=== PATIENT | female | born 1935 | race Caucasian/White ===

== ENCOUNTER 2018-04-30 15:02 | Observation (INO) ==
[2018-04-30 17:50] LABS: BASOPHILS # (AUTO) 0.1 X10^3/uL (0.0-0.1); BASOPHILS % (AUTO) 0.7 % (0.2-1.0); EOSINOPHILS % (AUTO) 0.2 % (0.9-2.9); HEMATOCRIT 32.2 % (36.0-47.0); HEMOGLOBIN 10.9 g/dL (12.0-16.0); LYMPHOCYTES # (AUTO) 1.5 X10^3/uL (1.3-2.9); LYMPHOCYTES % (AUTO) 16.3 % (21.0-51.0); MEAN CORPUSCULAR HEMOGLOBIN 27.8 pg (27.0-34.0); MEAN CORPUSCULAR HGB CONC 33.8 g/dL (33.0-35.0); MEAN CORPUSCULAR VOLUME 82.2 fL (80.0-100.0); MONOCYTES % (AUTO) 10.8 % (0.0-13.0); NEUTROPHILS # (AUTO) 6.5 x10^3/uL (2.2-4.8); PLATELET COUNT 347 X10^3/uL (150.0-450.0); RED BLOOD COUNT 3.92 X10^6/uL (3.5-5.4); RED CELL DISTRIBUTION WIDTH 14.9 % (11.6-16.5); WHITE BLOOD COUNT 9.1 X10^3/uL (3.6-10.0)
[2018-04-30 18:00] LABS: ALANINE AMINOTRANSFERASE 13 Units/L (12-78); ALKALINE PHOSPHATASE 69 Units/L (46-116); ASPARTATE AMINO TRANSFERASE 18 Units/L (15-37); BLOOD UREA NITROGEN 16 mg/dL (7-18); CALCIUM 8.7 mg/dL (8.5-10.1); CARBON DIOXIDE 29.1 mmol/L (21-32); CHLORIDE 102 mmol/L (98-107); COR CA(FOR HYPOALB) 9.5 mg/dL (8.5-10.1); CREATININE 1.27 mg/dL (0.55-1.02); SODIUM 140 mmol/L (136-145); TOTAL PROTEIN 6.8 g/dL (6.4-8.2); eGFR NON BLACK RACES 43 (>60)
[2018-04-30 18:03] VITALS: BMI 26.9
[2018-04-30] MEDS: NS 1000 ML 1,000 ML IV SCH (18:16)
--- NOTE | 2018-04-30 20:11 | RAD ---
HISTORY: Abdominal Pain Study: Single view of the abdomen. Comparison: None Findings: Evaluation of the abdomen demonstrates a normal bowel gas pattern. No free air. No pathological soft tissue mass or calcification can be observed. The bony structures are grossly intact. IMPRESSION: 1. No evidence for acute abdominal pathology identified. Reported By:
[2018-04-30 20:42] LABS: BILIRUBIN,URINE NEGATIVE (NEGATIVE); BLOOD/HEMOGLOBIN,URINE 2+ (NEGATIVE); GLUCOSE, URINE NEGATIVE (NEGATIVE); KETONES,URINE NEGATIVE (NEGATIVE); LEUKOCYTE ESTERASE ,URINE 2+ (NEGATIVE); NITRITES,URINE NEGATIVE (NEGATIVE); PROTEIN,URINE 2+ (NEGATIVE); UROBILINOGEN,URINE NORMAL (NORMAL)
[2018-04-30 20:51] LABS: APPEARANCE,URINE HAZY (CLEAR); BACTERIA,URINE TRACE /HPF (NEGATIVE); COLOR,URINE YELLOW (YELLOW); SQUAMOUS EPITHELIAL CELL,UR RARE /HPF (NEGATIVE)
[2018-04-30] MEDS: COLACE CAP 100 MG PO SCH ×2 (20:58→21:01)
[2018-04-30] MEDS: MILK OF MAGNESIA PO SCH ×2 (20:59→21:01)
[2018-04-30] MEDS: MIRALAX POWDER (1 DOSE 17 G) PO SCH (21:03)
[2018-04-30] MEDS: ROCEPHIN VIAL 1 GRAM IVP SCH (22:10)
[2018-05-01 05:20] LABS: BASOPHILS # (AUTO) 0.1 X10^3/uL (0.0-0.1); BASOPHILS % (AUTO) 0.7 % (0.2-1.0); EOSINOPHILS % (AUTO) 0.3 % (0.9-2.9); HEMATOCRIT 33.9 % (36.0-47.0); HEMOGLOBIN 11.2 g/dL (12.0-16.0); LYMPHOCYTES # (AUTO) 1.4 X10^3/uL (1.3-2.9); LYMPHOCYTES % (AUTO) 13.1 % (21.0-51.0); MEAN CORPUSCULAR HEMOGLOBIN 27.6 pg (27.0-34.0); MEAN CORPUSCULAR HGB CONC 33.1 g/dL (33.0-35.0); MEAN CORPUSCULAR VOLUME 83.5 fL (80.0-100.0); MEAN PLATELET VOLUME 7.6 fL (7.4-11.0); MONOCYTES # (AUTO) 1.1 x10^3/uL (0.3-0.8); MONOCYTES % (AUTO) 10.6 % (0.0-13.0); NEUTROPHILS # (AUTO) 7.8 x10^3/uL (2.2-4.8); NEUTROPHILS % (AUTO) 75.3 % (42.0-75.0); PLATELET COUNT 373 X10^3/uL (150.0-450.0); RED BLOOD COUNT 4.06 X10^6/uL (3.5-5.4); RED CELL DISTRIBUTION WIDTH 14.9 % (11.6-16.5); WHITE BLOOD COUNT 10.4 X10^3/uL (3.6-10.0)
[2018-05-01] MEDS ORDERED: POTASSIUM CHL 60 MEQ/NS 0.45% 500 ML IV PRN (05:26)
[2018-05-01] MEDS ORDERED: K-RIDER 10 MEQ/NS 100 ML 10 MEQ/100 ML BAG IV PRN (05:26)
[2018-05-01] MEDS ORDERED: POTASSIUM CHL 40 MEQ/NS 0.45% 500 ML IV PRN (05:26)
[2018-05-01] MEDS ORDERED: POTASSIUM CHLORIDE LIQ 20 MEQ UDC PO PRN (05:26)
[2018-05-01] MEDS ORDERED: MICRO K EXTEN CAP 10 MEQ PO PRN (05:26)
[2018-05-01] MEDS ORDERED: KLOR-CON PO PRN (05:26)
[2018-05-01] MEDS: NS 1000 ML 1,000 ML IV SCH ×2 (05:29→19:17)
[2018-05-01 05:45] LABS: ALANINE AMINOTRANSFERASE 14 Units/L (12-78); ALBUMIN 2.9 g/dL (3.4-5.0); ALKALINE PHOSPHATASE 71 Units/L (46-116); ASPARTATE AMINO TRANSFERASE 20 Units/L (15-37); BLOOD UREA NITROGEN 16 mg/dL (7-18); CALCIUM 8.7 mg/dL (8.5-10.1); CARBON DIOXIDE 30.4 mmol/L (21-32); CHLORIDE 102 mmol/L (98-107); COR CA(FOR HYPOALB) 9.6 mg/dL (8.5-10.1); CREATININE 1.04 mg/dL (0.55-1.02); SODIUM 141 mmol/L (136-145); TOTAL PROTEIN 6.8 g/dL (6.4-8.2); eGFR NON BLACK RACES 54 (>60)
[2018-05-01] MEDS: MAGNESIUM SULFATE 1 GRAM/100 mL PREMIX 1 GM/100 ML BAG IV PRN ×2 (06:13→09:02)
[2018-05-01] MEDS: K-DUR TAB 20 MEQ PO PRN (06:14)
[2018-05-01] MEDS: ROCEPHIN VIAL 1 GRAM IVP SCH (09:01)
[2018-05-01] MEDS: MILK OF MAGNESIA PO SCH (09:04)
[2018-05-01] MEDS: COLACE CAP 100 MG PO SCH (09:04)
[2018-05-01] MEDS: MIRALAX POWDER (1 DOSE 17 G) PO SCH (09:05)
--- NOTE | 2018-05-01 09:57 | DR.UPDATE ---
H&P Update History and Physical Update: WAS SEEN IN THE OFFICE YESTERDAY. SHE COMPLAINTSED OF ABDOMINAL PAIN, LACK OF BLADDER CONTROL, URGENCY, INTERMITTENT, WATERY DIARRHEA. SHE DENIES A NORMAL BOWEL MOVMENENT IN THE PAST 3 WEEKS. SHE REPORTS FEELING LIKE SHE NEEDS TO HAVE A BOWEL MOVMENT, BUT ONLY HAS DIARRHEA. SHE WAS ADMITTED FOR FURTHER EVALUATION AND TREATMENTS. ON ADMISSION, WE PLANNED TO OBTAIN LABS, KUB, AND ADMINISTER SOAP SUDS ENEMAS UNTIL CLEAR. NO OTHER CHANGES NOTED TO H&P. Changes noted: NO
[2018-05-01] MEDS ORDERED: NEURONTIN CAP 100 MG PO PRN (11:26)
[2018-05-01] MEDS ORDERED: ULTRAM PO PRN (11:26)
[2018-05-01] MEDS: NORVASC TAB 5 MG PO SCH (12:00)
[2018-05-01] MEDS: CELEBREX PO SCH (12:00)
[2018-05-01] MEDS: PAXIL PO SCH (12:00)
[2018-05-01] MEDS: PROTONIX TAB 40 MG PO SCH (12:00)
[2018-05-01] MEDS: ARICEPT TAB 10 MG PO SCH ×2 (12:00→20:21)
--- NOTE | 2018-05-01 13:10 | CT ---
CT OF THE ABDOMEN AND PELVIS WITH CONTRAST HISTORY: Abdominal pain and diarrhea Comparison: None Technique: Multiple axial images of the abdomen and pelvis were obtained from the lung bases to the pubic symphysis follow the administration of IV contrast as well as oral contrast. Dose reduction techniques including Automated Exposure Control (AEC) and adjustment of mA and kV were utlized. Findings: The heart is normal in size. There is no pericardial effusion. Lung bases are clear without focal consolidation, pleural effusion or pneumothorax. There is a large hiatal hernia with some surrounding fluid in the hernia sac Liver and spleen are normal in size, enhancement characteristics and contour. No focal lesions. The portal vein is patent. No ductal dilitation. Gallbladder absent. The pancreas is unremarkable. Adrenal glands are normal. Kidneys enhance symmetrically without hydronephrosis or nephrolithiasis. No bowel obstruction or inflammation. There is omental caking, ascites and peritoneal thickening/nodularity. Severe diverticulosis. No free fluid or fluid collections. Although pelvic structures are not well evaluated secondary to streak artifact from patient's right hip prosthesis, there is extensive abnormal soft tissue within the pelvis. The uterus is not well seen however this soft tissues in the region of the utero be expected to be located. Additionally it is confluent with the sigmoid colon at multiple regions. No aggressive osseous lesions. Multiple compression fractures most notably L1, L2. IMPRESSION: 1. Abnormal soft tissue in the pelvis without clear identification of normal uterus or ovaries. This soft tissue is confluent with the sigmoid colon. Differential considerations include colonic or TOWER HELPER malignancy. There is extensive omental thickening and peritoneal nodularity as well as ascites consisting with metastatic peritoneal carcinomatosis. Reported By:
[2018-05-01] MEDS: SYNTHROID 75 mcg TAB PO SCH (13:44)
[2018-05-01] MEDS: XANAX PO SCH ×2 (13:44→20:21)
[2018-05-01 14:07] LABS: STOOL FOR WBC NEGATIVE (NEGATIVE)
[2018-05-01 14:29] LABS: CRYPTOSPORIDIUM PARVUM ANTIGEN NEGATIVE (NEGATIVE); GIARDIA LAMBLIA ANTIGEN NEGATIVE (NEGATIVE)
[2018-05-01] MEDS ORDERED: ZOCOR TAB 10 MG PO SCH (21:00)
[2018-05-02] MEDS: NS 1000 ML 1,000 ML IV SCH ×2 (03:31→07:37)
[2018-05-02 05:20] LABS: BASOPHILS # (AUTO) 0.1 X10^3/uL (0.0-0.1); BASOPHILS % (AUTO) 0.6 % (0.2-1.0); EOSINOPHILS # (AUTO) 0.1 x10^3/uL (0.0-0.2); EOSINOPHILS % (AUTO) 1.5 % (0.9-2.9); HEMATOCRIT 29.5 % (36.0-47.0); HEMOGLOBIN 9.7 g/dL (12.0-16.0); LYMPHOCYTES # (AUTO) 1.2 X10^3/uL (1.3-2.9); LYMPHOCYTES % (AUTO) 14.1 % (21.0-51.0); MEAN CORPUSCULAR HEMOGLOBIN 27.8 pg (27.0-34.0); MEAN PLATELET VOLUME 7.3 fL (7.4-11.0); MONOCYTES # (AUTO) 1.1 x10^3/uL (0.3-0.8); MONOCYTES % (AUTO) 12.8 % (0.0-13.0); NEUTROPHILS # (AUTO) 5.9 x10^3/uL (2.2-4.8); PLATELET COUNT 303 X10^3/uL (150.0-450.0); RED BLOOD COUNT 3.51 X10^6/uL (3.5-5.4); RED CELL DISTRIBUTION WIDTH 15.1 % (11.6-16.5); WHITE BLOOD COUNT 8.3 X10^3/uL (3.6-10.0)
[2018-05-02 05:27] LABS: ALANINE AMINOTRANSFERASE 11 Units/L (12-78); ALBUMIN 2.4 g/dL (3.4-5.0); ALKALINE PHOSPHATASE 61 Units/L (46-116); ASPARTATE AMINO TRANSFERASE 16 Units/L (15-37); BLOOD UREA NITROGEN 15 mg/dL (7-18); CALCIUM 8.1 mg/dL (8.5-10.1); CARBON DIOXIDE 27.7 mmol/L (21-32); CHLORIDE 106 mmol/L (98-107); COR CA(FOR HYPOALB) 9.4 mg/dL (8.5-10.1); MAGNESIUM 1.9 mg/dL (1.7-2.9); SODIUM 143 mmol/L (136-145); TOTAL PROTEIN 5.7 g/dL (6.4-8.2); eGFR NON BLACK RACES > 60 (>60)
[2018-05-02] MEDS: MAGNESIUM SULFATE 1 GRAM/100 mL PREMIX 1 GM/100 ML BAG IV PRN ×2 (05:56→09:12)
[2018-05-02] MEDS: K-DUR TAB 20 MEQ PO PRN (05:57)
[2018-05-02] MEDS: SYNTHROID 75 mcg TAB PO SCH (06:01)
[2018-05-02] MEDS: ARICEPT TAB 10 MG PO SCH (08:58)
[2018-05-02] MEDS: NORVASC TAB 5 MG PO SCH (08:59)
[2018-05-02] MEDS: CELEBREX PO SCH (08:59)
[2018-05-02] MEDS: PROTONIX TAB 40 MG PO SCH (09:00)
[2018-05-02] MEDS: PAXIL PO SCH (09:00)
[2018-05-02] MEDS ORDERED: ALTACE CAP 10 MG PO SCH (09:00)
[2018-05-02] MEDS ORDERED: TOPROL XL PO SCH (09:00)
[2018-05-02] MEDS: ROCEPHIN VIAL 1 GRAM IVP SCH (09:00)
[2018-05-02 12:09] VITALS: BP 135/68
--- NOTE | 2018-05-05 09:11 | PCM.PROG ---
Progress Note - Progress Note for Day of Date of Exam: 05/01/18 - Subjective Subjective: WAS ADMITTED FOR COMPLAINTS OF ABDOMINAL PAIN, PERIODS OF CONSTIPATION FOLLOWED BY DIARRHEA. TODAY, SHE IS ALERT AND ORIENTED, LYING IN BED ON MORNING ROUNDS. SHE CONTINUES WITH COMPLAINTS OF ABDOMINAL PAIN AND DIARRHEA. YESTERDAYS KUB ON ADMISSION DID NOT REVEAL CONSTIPATION. HER VITALS THIS MORNING ARE 98.3-60-18-96%-161/73. LABS WERE OBTAINED. ABNORMAL LAB VALUES INCLUDE THE FOLLOWING: WBC 10.4, HGB 11.2, HCT 33.9, POTASSIUM 3.4, CREATININE 1.04, GLUCOSE 104, ALBUMIN 2.9. URINALYSIS OBTAINED ON ADMISSION REVEALED: WBC 10-20, RBC 3-5, BACTERIA TRACE, LEUKOCYTES 2+. URINE CULTURE PENDING. SHE IS CURRENTLY RECEIVING IV ROCEPHIN AND IV HYDRATION. WE WILL REPLACE HER POTASSI UMWITH THE POTASSIUM PROTOCOL TODAY. WE WILL ALSO OBTAIN STOOL STUDIES AND A CT OF THE ABDOMEN AND PELVIS WITH CONTRAST. OTHERWISE, WE WILL FOLLOW UP WITH AM LABS AND CONTINUE TO MONITOR. - Past Medical Family Social History Past Med/Fam/Surg Hx: No changes since H&P Allergies: Allergies No Known Drug Allergies Allergy (Verified 03/18/18 11:41) - Review of Systems ROS: No change since H&P - Vital Signs and I&O's Vital Signs: Temperature 98.6 F Pulse Rate [Left Radial] 63 Respiratory Rate 18 Blood Pressure [Left Arm] 135/68 Blood Pressure 139/81 O2 Sat by Pulse Oximetry 93 Intake and Output: Intake & Output 05/02/18 05/03/18 05/04/18 05/05/18 11:59 11:59 11:59 11:59 Intake Total 1969 Balance 1969 - Physical Exam Oriented: Normal Eyes: Normal Ear: Normal Nose: Normal Throat: Normal Respiratory: Normal Cardiovascular: Normal : Normal Auscultation: Bowel Sounds: Normal Palpation: Normal Tenderness: Diffuse, Moderate. negative: Rebound, Guarding, Rigidity Skin: Normal Musculoskeletal: Normal Psychiatric: Normal Mood Description: Calm Affect: Normal Speech Pattern: Clear, Appropriate - Laboratory and Diagnostics Result Diagrams: 05/02/18 04:32 05/02/18 04:32 Labs: 05/01/18 13:00 Stool Stool Culture - Final 05/01/18 13:00 Stool - Final 04/30/18 20:25 Urine,Clean Catch Urine Culture - Final Staphylococcus Saprophyticus Laboratory WBC 8.3 X10^3/uL (3.6-10.0) 05/02/18 04:32 RBC 3.51 X10^6/uL (3.5-5.4) 05/02/18 04:32 Hgb 9.7 g/dL (12.0-16.0) L 05/02/18 04:32 Hct 29.5 % (36.0-47.0) L 05/02/18 04:32 MCV 84.0 fL (80.0-100.0) 05/02/18 04:32 MCH 27.8 pg (27.0-34.0) 05/02/18 04:32 MCHC 33.0 g/dL (33.0-35.0) 05/02/18 04:32 RDW 15.1 % (11.6-16.5) 05/02/18 04:32 Plt Count 303 X10^3/uL (150.0-450.0) 05/02/18 04:32 MPV 7.3 fL (7.4-11.0) L 05/02/18 04:32 Neut % (Auto) 71.0 % (42.0-75.0) 05/02/18 04:32 Lymph % (Auto) 14.1 % (21.0-51.0) L 05/02/18 04:32 [place] % (Auto) 12.8 % (0.0-13.0) 05/02/18 04:32 Eos % (Auto) 1.5 % (0.9-2.9) 05/02/18 04:32 Baso % (Auto) 0.6 % (0.2-1.0) 05/02/18 04:32 Neut # (Auto) 5.9 x10^3/uL (2.2-4.8) H 05/02/18 04:32 Lymph # (Auto) 1.2 X10^3/uL (1.3-2.9) L 05/02/18 04:32 [place] # (Auto) 1.1 x10^3/uL (0.3-0.8) H 05/02/18 04:32 Eos # (Auto) 0.1 x10^3/uL (0.0-0.2) 05/02/18 04:32 Baso # (Auto) 0.1 X10^3/uL (0.0-0.1) 05/02/18 04:32 Absolute Nucleated RBC 0.0 /100WBC 05/02/18 04:32 Sodium 143 mmol/L (136-145) 05/02/18 04:32 Corrected Sodium TNP 05/02/18 04:32 Potassium 3.6 mmol/L (3.5-5.1) 05/02/18 04:32 Chloride 106 mmol/L (98-107) 05/02/18 04:32 Carbon Dioxide 27.7 mmol/L (21-32) 05/02/18 04:32 BUN 15 mg/dL (7-18) 05/02/18 04:32 Creatinine 0.90 mg/dL (0.55-1.02) 05/02/18 04:32 Est GFR (MDRD) Af Amer > 60 (>60) 05/02/18 04:32 Est GFR (MDRD) Non-Af > 60 (>60) 05/02/18 04:32 Glucose 101 mg/dL (65-99) H 05/02/18 04:32 Calcium 8.1 mg/dL (8.5-10.1) L 05/02/18 04:32 Corrected Calcium 9.4 mg/dL (8.5-10.1) 05/02/18 04:32 Magnesium 1.9 mg/dL (1.7-2.9) 05/02/18 04:32 Total Bilirubin 0.20 mg/dL (0.2-1.0) 05/02/18 04:32 AST 16 Units/L (15-37) 05/02/18 04:32 ALT 11 Units/L (12-78) L 05/02/18 04:32 Alkaline Phosphatase 61 Units/L (46-116) 05/02/18 04:32 Total Protein 5.7 g/dL (6.4-8.2) L 05/02/18 04:32 Albumin 2.4 g/dL (3.4-5.0) L 05/02/18 04:32 Globulin 3.3 g/dL (2.5-4.5) 05/02/18 04:32 Albumin/Globulin Ratio 0.7 Ratio (1.1-2.1) L 05/02/18 04:32 Carcinoembryonic Ag 1.7 ng/mL (0.0-3.0) 05/02/18 04:32 CA 19-9 Antigen 10 U/mL (0-37) 05/02/18 04:32 CA 125 Antigen 704 U/mL (0-35) H 05/02/18 04:32 Specimen Type Clean catch urine 04/30/18 20:25 Urine Color Yellow (YELLOW) 04/30/18 20:25 Urine Appearance Hazy (CLEAR) 04/30/18 20:25 Urine pH 7.0 (5.0 - 8.0) 04/30/18 20:25 Ur Specific [place] 1.010 (1.000-1.030) 04/30/18 20:25 Urine Protein 2+ (NEGATIVE) 04/30/18 20:25 Urine Glucose (UA) Negative (NEGATIVE) 04/30/18 20:25 Urine Ketones Negative (NEGATIVE) 04/30/18 20:25 Urine Occult Blood 2+ (NEGATIVE) 04/30/18 20:25 Urine Nitrite Negative (NEGATIVE) 04/30/18 20:25 Urine Bilirubin Negative (NEGATIVE) 04/30/18 20:25 Urine Urobilinogen Normal (NORMAL) 04/30/18 20:25 Ur Leukocyte Esterase 2+ (NEGATIVE) 04/30/18 20:25 Urine RBC 3-5 /HPF (NONE SEEN) 04/30/18 20:25 Urine WBC 10-20 /HPF (NONE SEEN) 04/30/18 20:25 Ur Squamous Epith Cells Rare /HPF (NEGATIVE) 04/30/18 20:25 Urine Bacteria Trace /HPF (NEGATIVE) 04/30/18 20:25 Ur Culture Indicated? Yes/culture set up 04/30/18 20:25 Stool Description 2g loose brown 05/01/18 13:00 Stl Occult Blood (IFOB) Negative (NEGATIVE) 05/01/18 13:00 Stool for White Cells Negative (NEGATIVE) 05/01/18 13:00 Stl C. diff Tox B Gene Negative (NEGATIVE) 05/01/18 13:00 Stl C. diff [id number] Negative (NEGATIVE) 05/01/18 13:00 Cryptosporid parvum Ag Negative (NEGATIVE) 05/01/18 13:00 Giardia lamblia Ag Negative (NEGATIVE) 05/01/18 13:00 - Plan (1) Abdominal pain Status: Acute Qualifiers: Abdominal location: generalized Qualified Code(s): R10.84 - Generalized abdominal pain Plan: OBTAIN ABDOMEN/PELVIS CT WITH CONTRAST, CONTINUE TO MONITOR (2) Urinary tract infection Status: Acute Qualifiers: Urinary tract infection type: acute cystitis Hematuria presence: with hematuria Qualified Code(s): N30.01 - Acute cystitis with hematuria Plan: ROCEPHIN 1GM IV DAILY, IV HYDRATION, CONTINUE TO MONITOR (3) Diarrhea Status: Acute Qualifiers: Diarrhea type: unspecified type Qualified Code(s): R19.7 - Diarrhea, unspecified Plan: STOOL STUDIES, CONTINUE TO MONITOR
== END 2018-05-02 12:20 | disposition home or self-care (01) ==
LOC: MED/SURG
PROVIDERS: ADMIT Internal Medicine; ATTEND Internal Medicine
DX: R01.1 Cardiac murmur, unspecified; I10 Essential (primary) hypertension; R19.7 Diarrhea, unspecified; K56.41 Fecal impaction; R26.89 Other abnormalities of gait and mobility; R10.84 Generalized abdominal pain; R97.1 Elevated cancer antigen 125 [CA 125]; F41.1 Generalized anxiety disorder; B95.7 Other staphylococcus as the cause of diseases classified elsewhere; R94.4 Abnormal results of kidney function studies; E78.2 Mixed hyperlipidemia; N30.01 Acute cystitis with hematuria
CPT/HCPCS: 36415; 74000; 74018; 74177; 80053; 81001; 82270; 82378; 83630; 83735; 85025; 86301; 86304; 86316; 87045; 87086; 87186; 87328; 87329; 87427; 87449; 87493; 87899; 96367; 96374; 97110; 97116; 97162; 97166; 97535; A4216; A4222; G0378; J0696; J3475; J7030

== ENCOUNTER 2018-05-10 17:23 | Inpatient (IN) ==
[2018-05-10] MEDS ORDERED: ZITHROMAX INJ 500 MG VIAL 500 MG in NS 250 ML IV 250 ML IV SCH (20:26)
[2018-05-10 20:33] VITALS: BMI 26.9
[2018-05-10 20:59] LABS: BASOPHILS # (AUTO) 0.1 X10^3/uL (0.0-0.1); BASOPHILS % (AUTO) 0.4 % (0.2-1.0); EOSINOPHILS % (AUTO) 0.1 % (0.9-2.9); HEMATOCRIT 37.6 % (36.0-47.0); HEMOGLOBIN 12.4 g/dL (12.0-16.0); LYMPHOCYTES # (AUTO) 0.9 X10^3/uL (1.3-2.9); LYMPHOCYTES % (AUTO) 5.4 % (21.0-51.0); MEAN CORPUSCULAR HEMOGLOBIN 27.5 pg (27.0-34.0); MEAN CORPUSCULAR HGB CONC 32.9 g/dL (33.0-35.0); MEAN CORPUSCULAR VOLUME 83.7 fL (80.0-100.0); MONOCYTES # (AUTO) 1.1 x10^3/uL (0.3-0.8); MONOCYTES % (AUTO) 6.7 % (0.0-13.0); NEUTROPHILS # (AUTO) 13.8 x10^3/uL (2.2-4.8); NEUTROPHILS % (AUTO) 87.4 % (42.0-75.0); PLATELET COUNT 421 X10^3/uL (150.0-450.0); RED BLOOD COUNT 4.49 X10^6/uL (3.5-5.4); RED CELL DISTRIBUTION WIDTH 15.4 % (11.6-16.5); WHITE BLOOD COUNT 15.8 X10^3/uL (3.6-10.0)
[2018-05-10] MEDS: MAGNESIUM SULFATE 1 GRAM/100 mL PREMIX 1 GM/100 ML BAG IV PRN ×2 (21:00→22:00)
[2018-05-10] MEDS ORDERED: NS 1000 ML 1,000 ML IV ONE (21:00)
[2018-05-10 21:21] LABS: ALANINE AMINOTRANSFERASE 15 Units/L (12-78); ALBUMIN 2.7 g/dL (3.4-5.0); ALKALINE PHOSPHATASE 92 Units/L (46-116); ASPARTATE AMINO TRANSFERASE 25 Units/L (15-37); BLOOD UREA NITROGEN 14 mg/dL (7-18); CALCIUM 8.1 mg/dL (8.5-10.1); CARBON DIOXIDE 28.1 mmol/L (21-32); CHLORIDE 103 mmol/L (98-107); CKMB % 3.6 % (<4); COR CA(FOR HYPOALB) 9.1 mg/dL (8.5-10.1); COR NA(FOR HYPERGLY) 141 mmol/L (136-145); CREATINE KINASE 47 Units/L (26-192); CREATINE KINASE MB 1.7 ng/mL (0-4.0); CREATININE 1.12 mg/dL (0.55-1.02); SODIUM 140 mmol/L (136-145); TOTAL PROTEIN 6.5 g/dL (6.4-8.2); TROPONIN I < 0.02 ng/mL (0-1.5); eGFR NON BLACK RACES 49 (>60)
[2018-05-10] MEDS ORDERED: POTASSIUM CHL 60 MEQ/NS 0.45% 500 ML IV PRN (21:26)
[2018-05-10] MEDS ORDERED: KLOR-CON PO PRN (21:26)
[2018-05-10] MEDS ORDERED: K-RIDER 10 MEQ/NS 100 ML 10 MEQ/100 ML BAG IV PRN (21:26)
[2018-05-10] MEDS ORDERED: POTASSIUM CHLORIDE LIQ 20 MEQ UDC PO PRN (21:26)
[2018-05-10] MEDS ORDERED: MICRO K EXTEN CAP 10 MEQ PO PRN (21:26)
[2018-05-10] MEDS ORDERED: POTASSIUM CHL 40 MEQ/NS 0.45% 500 ML IV PRN (21:26)
[2018-05-10] MEDS ORDERED: SALINE 3% 15 ML NEB TX NEB ONE (21:33)
[2018-05-10] MEDS: DUONEB 0.5 MG/3 MG NEB SCH (21:37)
[2018-05-10] MEDS ORDERED: XANAX PO ONE (22:26)
[2018-05-10] MEDS: ROCEPHIN VIAL 1 GRAM IVP SCH (22:31)
[2018-05-10] MEDS: K-DUR TAB 20 MEQ PO PRN (22:32)
[2018-05-10] MEDS: NS 1000 ML 1,000 ML IV SCH (22:32)
[2018-05-11 00:39] LABS: BILIRUBIN,URINE NEGATIVE (NEGATIVE); BLOOD/HEMOGLOBIN,URINE 1+ (NEGATIVE); GLUCOSE, URINE NEGATIVE (NEGATIVE); KETONES,URINE NEGATIVE (NEGATIVE); LEUKOCYTE ESTERASE ,URINE NEGATIVE (NEGATIVE); NITRITES,URINE NEGATIVE (NEGATIVE); PROTEIN,URINE 2+ (NEGATIVE); UROBILINOGEN,URINE NORMAL (NORMAL)
[2018-05-11 00:50] LABS: APPEARANCE,URINE HAZY (CLEAR); BACTERIA,URINE TRACE /HPF (NEGATIVE); COLOR,URINE YELLOW (YELLOW); RBC,URINE 0-2 /HPF (NONE SEEN); SQUAMOUS EPITHELIAL CELL,UR NEGATIVE /HPF (NEGATIVE)
[2018-05-11 02:40] LABS: CKMB % 2.9 % (<4); TROPONIN I 0.02 ng/mL (0-1.5)
[2018-05-11] MEDS ORDERED: BUTT CREAM (COMPOUND) ONE (02:54)
[2018-05-11] MEDS ORDERED: BUTT CREAM (COMPOUND) TOP PRN (03:34)
--- NOTE | 2018-05-11 06:17 | RAD ---
Examination: Portable AP chest History: Pneumonia Comparison 03/18/2018 Findings: Stable cardiac enlargement. The peripheral lungs are clear although the left lower lobe is obscured by the heart and a large hiatal hernia. There is no evidence for pneumonia or pleural fluid. Impression: Cardiac enlargement. Large intrathoracic hiatal hernia. Reported By:
[2018-05-11 06:44] LABS: BASOPHILS # (AUTO) 0.1 X10^3/uL (0.0-0.1); BASOPHILS % (AUTO) 0.4 % (0.2-1.0); EOSINOPHILS % (AUTO) 0.1 % (0.9-2.9); HEMATOCRIT 30.9 % (36.0-47.0); HEMOGLOBIN 10.2 g/dL (12.0-16.0); LYMPHOCYTES % (AUTO) 7.5 % (21.0-51.0); MEAN CORPUSCULAR HEMOGLOBIN 27.3 pg (27.0-34.0); MEAN CORPUSCULAR HGB CONC 33.1 g/dL (33.0-35.0); MEAN CORPUSCULAR VOLUME 82.6 fL (80.0-100.0); MEAN PLATELET VOLUME 7.2 fL (7.4-11.0); MONOCYTES # (AUTO) 1.2 x10^3/uL (0.3-0.8); NEUTROPHILS # (AUTO) 10.9 x10^3/uL (2.2-4.8); PLATELET COUNT 371 X10^3/uL (150.0-450.0); RED BLOOD COUNT 3.74 X10^6/uL (3.5-5.4); RED CELL DISTRIBUTION WIDTH 15.2 % (11.6-16.5); WHITE BLOOD COUNT 13.1 X10^3/uL (3.6-10.0)
[2018-05-11 06:51] LABS: ALANINE AMINOTRANSFERASE 12 Units/L (12-78); ALBUMIN 2.2 g/dL (3.4-5.0); ALKALINE PHOSPHATASE 70 Units/L (46-116); ASPARTATE AMINO TRANSFERASE 22 Units/L (15-37); BLOOD UREA NITROGEN 15 mg/dL (7-18); CALCIUM 7.8 mg/dL (8.5-10.1); CARBON DIOXIDE 25.1 mmol/L (21-32); CHLORIDE 105 mmol/L (98-107); COR CA(FOR HYPOALB) 9.2 mg/dL (8.5-10.1); COR NA(FOR HYPERGLY) 142 mmol/L (136-145); CREATININE 1.09 mg/dL (0.55-1.02); SODIUM 141 mmol/L (136-145); TOTAL PROTEIN 5.4 g/dL (6.4-8.2); eGFR NON BLACK RACES 51 (>60)
[2018-05-11 09:07] LABS: CREATINE KINASE 35 Units/L (26-192); CREATINE KINASE MB < 1.0 ng/mL (0-4.0); TROPONIN I < 0.02 ng/mL (0-1.5)
[2018-05-11 09:16] LABS: CKMB % 2.9 % (<4)
[2018-05-11] MEDS: K-DUR TAB 20 MEQ PO PRN (09:28)
[2018-05-11] MEDS: ROCEPHIN VIAL 1 GRAM IVP SCH (09:31)
[2018-05-11] MEDS: DUONEB 0.5 MG/3 MG NEB SCH ×4 (09:37→20:18)
[2018-05-11] MEDS ORDERED: PROTONIX INJ 40 MG VIAL IVP ONE (09:40)
[2018-05-11] MEDS ORDERED: LOMOTIL PO PRN (09:44)
--- NOTE | 2018-05-11 09:49 | DR.H&P ---
H&P - History & Physical for Day of: H&P Date: 05/10/18 - Chief Complaint Chief Complaint: SYNCOPE - History of Present Illness History of Present Illness: PT IS 83 WF TRANSFER FROM [facility] AFTER PRESENTING WITH CO SYNCOPE. PT WAS SEEN IN ER [facility], DIAGNOSED WITH PNEUMONIA. PT HAD CT HEAD NECK AND ABD/PELVIS. PT HAS NEWLY DIAGNOSED WITH OVARIAN CANCER WITH METASTATIC DISEASE. FAMILY CONSULTED WITH DR CRABTREE AND DR SKELTON AND AGREED FOR CONSERVATIVE MEASURES. FAMILY REPORTS PT HAS HAS CONTINUOUS DIARRHEA. PT ADMITTED FOR TREATMENT AND EVALUATION OF SYNCOPE, PNEUMONIA. - Past Medical History Past Medical History: Anxiety, Hypertension, Hypothyroidism - Past Surgical History Surgical History: Joint Replacement, Ortho Surgery - Family History Family Medical History: Coronary Artery Disease, Hypertension - Social History Does patient currently use any type of tobacco product: No Have you used tobacco products in the last 12 months: No Type of Tobacco Use: None Does any household member use tobacco: No Alcohol Use: None Drug Use: Prescription Drugs - Medications Home Medications: No Known Drug Allergies Allergy (Verified 03/18/18 11:41) CONTINUE taking the following medications aspirin [Aspir-Low] 81 mg PO QDAY 05/10/18 [History] - Review of Systems Constitutional: Weakness Eyes: No Symptoms Reported ENT: No Symptoms Reported Respiratory: No Symptoms Reported Cardiovascular: No Symptoms Reported Gastrointestinal: Abdominal Pain, Diarrhea Genitourinary: No Symptoms Reported Musculoskeletal: No Symptoms Reported Skin: No Symptoms Reported Neurological: Weakness - Physical Exam Vital Signs: Temperature 99.7 F Pulse Rate [Radial] 83 Pulse Rate 87 Respiratory Rate 18 Blood Pressure [Right Arm] 122/62 Blood Pressure [Left Arm] 132/68 Blood Pressure 135/68 O2 Sat by Pulse Oximetry 96 Oriented: Person Eyes: Normal Ear: Normal Nose: Normal Throat: Normal Respiratory: RLL Diminished, LLL Diminished Cardiovascular: Normal : Normal Auscultation: Bowel Sounds: Normal Palpation: Normal Tenderness: RLQ, LLQ, Suprapubic, Mild Skin: Decreased Turgur Musculoskeletal: Normal Psychiatric: Anxiety Affect: Anxious Speech Pattern: Clear, Appropriate - Assessment/Plan (1) Syncope Status: Acute Plan: ADMIT, SERIAL CE AND EKG. IV ATBX, RESP THERAPY. SUPPLEMENTAL O2, IV HYDRATION. VERIFY HOME MEDICATION. BP MONITORING, STOOL SPECIMEN. REVIEWED CT HEAD FROM [facility] (2) Hypertension Status: Acute (3) Diarrhea Qualifiers: Diarrhea type: unspecified type Qualified Code(s): R19.7 - Diarrhea, unspecified Status: Acute - Allergies Allergies/Adverse Reactions: Allergies Allergy/AdvReac Type Severity Reaction Status Date / Time No Known Drug Allergies Allergy Verified 03/18/18 11:41
[2018-05-11 10:46] LABS: STOOL FOR WBC POSITIVE (NEGATIVE)
[2018-05-11] MEDS: NORVASC TAB 5 MG PO SCH (11:04)
[2018-05-11] MEDS: ASPIRIN EC 81 MG PO SCH (11:04)
[2018-05-11] MEDS: SYNTHROID 75 mcg TAB PO SCH (11:04)
[2018-05-11] MEDS: PAXIL PO SCH (11:04)
--- NOTE | 2018-05-11 12:31 | PCM.PROG ---
Progress Note - Progress Note for Day of Date of Exam: 05/11/18 - Subjective Subjective: 83 WF ADMITTED ON 05/10 WITH CO SYNCOPE WITH RIGHT SIDE HEAD INJURY. PTHAD CT HEAD IN [place] WITHOUT ACUTE FINDINGS. CO SEVERE DIARRHEA. PT WAS ON ROCEPHIN AND ZITHROM FOR PNEUMONIA, DIAGNOSED IN [place]. PT CHEST XRAY WITHOUT INFILTRATE. PT HAD UTI ON PREVIOUS VISIT WITH SESATIVITY TO CIPRO. DC ZITHROMAX AND ROCEPHIN AND STARTED ON CIPRO IV. CONTINUE GENTLE IV HYDRATION AND DISCUSSED KEEPING BP MONITOR, PT MAY NEED ADJUSTMENTS IN ANTIHYPERTENSIVE STRENGTH. PT WBC 15.8 ON ADMISSION, 13.1 THIS AM. PT DENIES ANY PAIN FOR SOB, CO "RAW" TO HER BUTTOCKS - Past Medical Family Social History Past Med/Fam/Surg Hx: No changes since H&P Allergies: Allergies No Known Drug Allergies Allergy (Verified 03/18/18 11:41) - Review of Systems ROS: No change since H&P - Vital Signs and I&O's Vital Signs: Temperature 99.7 F Pulse Rate [Radial] 83 Pulse Rate 88 Respiratory Rate 18 Blood Pressure [Right Arm] 122/62 Blood Pressure [Left Arm] 132/68 Blood Pressure 135/68 O2 Sat by Pulse Oximetry 95 Intake and Output: Intake & Output 05/09/18 05/10/18 05/11/18 05/12/18 11:59 11:59 11:59 11:59 Intake Total 1270 / 1270 Balance 1270 / 1270 - Physical Exam Oriented: Person Eyes: Normal Ear: Normal Nose: Normal Throat: Normal Respiratory: Diminished Cardiovascular: Normal : Normal Auscultation: Bowel Sounds: Increased Tenderness: RLQ, LLQ, Suprapubic, Mild Skin: Decreased Turgur Musculoskeletal: Normal Psychiatric: Anxiety Affect: Anxious Speech Pattern: Clear, Appropriate - Laboratory and Diagnostics Result Diagrams: 05/11/18 05:39 05/11/18 05:39 Labs: 05/11/18 08:54 Stool - Final 05/10/18 22:12 Sputum - Expectorated Sputum - Final Laboratory WBC 13.1 X10^3/uL (3.6-10.0) H 05/11/18 05:39 RBC 3.74 X10^6/uL (3.5-5.4) 05/11/18 05:39 Hgb 10.2 g/dL (12.0-16.0) L D 05/11/18 05:39 Hct 30.9 % (36.0-47.0) L 05/11/18 05:39 MCV 82.6 fL (80.0-100.0) 05/11/18 05:39 MCH 27.3 pg (27.0-34.0) 05/11/18 05:39 MCHC 33.1 g/dL (33.0-35.0) 05/11/18 05:39 RDW 15.2 % (11.6-16.5) 05/11/18 05:39 Plt Count 371 X10^3/uL (150.0-450.0) 05/11/18 05:39 MPV 7.2 fL (7.4-11.0) L 05/11/18 05:39 Neut % (Auto) 83.0 % (42.0-75.0) H 05/11/18 05:39 Lymph % (Auto) 7.5 % (21.0-51.0) L 05/11/18 05:39 [place] % (Auto) 9.0 % (0.0-13.0) 05/11/18 05:39 Eos % (Auto) 0.1 % (0.9-2.9) L 05/11/18 05:39 Baso % (Auto) 0.4 % (0.2-1.0) 05/11/18 05:39 Neut # (Auto) 10.9 x10^3/uL (2.2-4.8) H 05/11/18 05:39 Lymph # (Auto) 1.0 X10^3/uL (1.3-2.9) L 05/11/18 05:39 [place] # (Auto) 1.2 x10^3/uL (0.3-0.8) H 05/11/18 05:39 Eos # (Auto) 0.0 x10^3/uL (0.0-0.2) 05/11/18 05:39 Baso # (Auto) 0.1 X10^3/uL (0.0-0.1) 05/11/18 05:39 Absolute Nucleated RBC 0.1 /100WBC 05/11/18 05:39 Sodium 141 mmol/L (136-145) 05/11/18 05:39 Corrected Sodium 142 mmol/L (136-145) 05/11/18 05:39 Potassium 3.7 mmol/L (3.5-5.1) 05/11/18 05:39 Chloride 105 mmol/L (98-107) 05/11/18 05:39 Carbon Dioxide 25.1 mmol/L (21-32) 05/11/18 05:39 BUN 15 mg/dL (7-18) 05/11/18 05:39 Creatinine 1.09 mg/dL (0.55-1.02) H 05/11/18 05:39 Est GFR (MDRD) Af Amer > 60 (>60) 05/11/18 05:39 Est GFR (MDRD) Non-Af 51 (>60) L 05/11/18 05:39 Glucose 121 mg/dL (65-99) H 05/11/18 05:39 Calcium 7.8 mg/dL (8.5-10.1) L 05/11/18 05:39 Corrected Calcium 9.2 mg/dL (8.5-10.1) 05/11/18 05:39 Magnesium 2.0 mg/dL (1.7-2.9) 05/11/18 05:39 Total Bilirubin 0.10 mg/dL (0.2-1.0) L 05/11/18 05:39 AST 22 Units/L (15-37) 05/11/18 05:39 ALT 12 Units/L (12-78) 05/11/18 05:39 Alkaline Phosphatase 70 Units/L (46-116) 05/11/18 05:39 Creatine Kinase 35 Units/L (26-192) 05/11/18 08:30 CK-MB (CK-2) < 1.0 ng/mL (0-4.0) 05/11/18 08:30 CK/CKMB % Calc 2.9 % (<4) 05/11/18 08:30 Troponin I < 0.02 ng/mL (0-1.5) 05/11/18 08:30 Total Protein 5.4 g/dL (6.4-8.2) L 05/11/18 05:39 Albumin 2.2 g/dL (3.4-5.0) L 05/11/18 05:39 Globulin 3.2 g/dL (2.5-4.5) 05/11/18 05:39 Albumin/Globulin Ratio 0.7 Ratio (1.1-2.1) L 05/11/18 05:39 Specimen Type Catherized urine 05/11/18 00:14 Urine Color Yellow (YELLOW) 05/11/18 00:14 Urine Appearance Hazy (CLEAR) 05/11/18 00:14 Urine pH 5.0 (5.0 - 8.0) 05/11/18 00:14 Ur Specific [place] 1.020 (1.000-1.030) 05/11/18 00:14 Urine Protein 2+ (NEGATIVE) 05/11/18 00:14 Urine Glucose (UA) Negative (NEGATIVE) 05/11/18 00:14 Urine Ketones Negative (NEGATIVE) 05/11/18 00:14 Urine Occult Blood 1+ (NEGATIVE) 05/11/18 00:14 Urine Nitrite Negative (NEGATIVE) 05/11/18 00:14 Urine Bilirubin Negative (NEGATIVE) 05/11/18 00:14 Urine Urobilinogen Normal (NORMAL) 05/11/18 00:14 Ur Leukocyte Esterase Negative (NEGATIVE) 05/11/18 00:14 Urine RBC 0-2 /HPF (NONE SEEN) 05/11/18 00:14 Urine WBC 3-5 /HPF (NONE SEEN) 05/11/18 00:14 Ur Squamous Epith Cells Negative /HPF (NEGATIVE) 05/11/18 00:14 Urine Bacteria Trace /HPF (NEGATIVE) 05/11/18 00:14 Ur Culture Indicated? No/not indicated 05/11/18 00:14 Stool Description 5cc drk brn, mucoid 05/11/18 08:54 Stl Occult Blood (IFOB) Positive (NEGATIVE) A 05/11/18 08:54 Stool for White Cells Positive (NEGATIVE) A 05/11/18 08:54 Stl C. diff Tox B Gene Negative (NEGATIVE) 05/11/18 08:54 Stl C. diff [id number] Negative (NEGATIVE) 05/11/18 08:54 - Plan (1) Syncope Status: Acute Plan: SERIAL CE AND EKG. IV ATBX, RESP THERAPY. SUPPLEMENTAL O2, IV HYDRATION. VERIFY HOME MEDICATION. BP MONITORING, STOOL SPECIMEN. REVIEWED CT HEAD FROM [place] (2) Hypertension Status: Acute (3) Diarrhea Status: Acute Qualifiers: Diarrhea type: unspecified type Qualified Code(s): R19.7 - Diarrhea, unsp ecified Plan: DUE TO METASTATIC DISEASE, COLITIS (4) UTI (urinary tract infection) Status: Acute Plan: CIPRO
[2018-05-11] MEDS: CIPRO IV 400 MG PREMIX* 400 MG/200 ML IV.SOLN. IV SCH ×2 (13:28→21:00)
[2018-05-11 14:56] LABS: CREATINE KINASE 37 Units/L (26-192); CREATINE KINASE MB < 1.0 ng/mL (0-4.0); TROPONIN I 0.02 ng/mL (0-1.5)
[2018-05-11 15:10] LABS: CKMB % 2.7 % (<4)
[2018-05-11] MEDS: ARICEPT TAB 10 MG PO SCH (21:00)
[2018-05-11 21:06] LABS: CKMB % 2.6 % (<4); CREATINE KINASE 38 Units/L (26-192); CREATINE KINASE MB < 1.0 ng/mL (0-4.0); TROPONIN I 0.02 ng/mL (0-1.5)
[2018-05-11] MEDS: ZOCOR TAB 10 MG PO SCH (21:34)
[2018-05-11] MEDS: XANAX PO SCH (21:34)
[2018-05-11] MEDS: ULTRAM PO PRN (22:35)
[2018-05-11] MEDS: NS 1000 ML 1,000 ML IV SCH (22:35)
[2018-05-12 03:02] LABS: CKMB % 3.1 % (<4); CREATINE KINASE 32 Units/L (26-192); CREATINE KINASE MB < 1.0 ng/mL (0-4.0); TROPONIN I 0.03 ng/mL (0-1.5)
[2018-05-12 06:30] LABS: BASOPHILS # (AUTO) 0.1 X10^3/uL (0.0-0.1); BASOPHILS % (AUTO) 0.5 % (0.2-1.0); EOSINOPHILS % (AUTO) 0.2 % (0.9-2.9); HEMATOCRIT 27.2 % (36.0-47.0); HEMOGLOBIN 9.1 g/dL (12.0-16.0); LYMPHOCYTES # (AUTO) 1.3 X10^3/uL (1.3-2.9); LYMPHOCYTES % (AUTO) 9.1 % (21.0-51.0); MEAN CORPUSCULAR HEMOGLOBIN 27.4 pg (27.0-34.0); MEAN CORPUSCULAR HGB CONC 33.4 g/dL (33.0-35.0); MEAN PLATELET VOLUME 7.3 fL (7.4-11.0); MONOCYTES # (AUTO) 1.3 x10^3/uL (0.3-0.8); MONOCYTES % (AUTO) 8.7 % (0.0-13.0); NEUTROPHILS % (AUTO) 81.5 % (42.0-75.0); PLATELET COUNT 347 X10^3/uL (150.0-450.0); RED BLOOD COUNT 3.32 X10^6/uL (3.5-5.4); RED CELL DISTRIBUTION WIDTH 15.4 % (11.6-16.5); WHITE BLOOD COUNT 14.7 X10^3/uL (3.6-10.0)
[2018-05-12 06:38] LABS: ALANINE AMINOTRANSFERASE 10 Units/L (12-78); ALBUMIN 1.9 g/dL (3.4-5.0); ALKALINE PHOSPHATASE 63 Units/L (46-116); ASPARTATE AMINO TRANSFERASE 25 Units/L (15-37); BLOOD UREA NITROGEN 13 mg/dL (7-18); CALCIUM 7.9 mg/dL (8.5-10.1); CARBON DIOXIDE 26.2 mmol/L (21-32); CHLORIDE 106 mmol/L (98-107); COR CA(FOR HYPOALB) 9.6 mg/dL (8.5-10.1); CREATININE 0.94 mg/dL (0.55-1.02); SODIUM 139 mmol/L (136-145); TOTAL PROTEIN 5.1 g/dL (6.4-8.2); eGFR NON BLACK RACES > 60 (>60)
--- NOTE | 2018-05-12 07:16 | RAD ---
AP Chest Indication: Pneumonia Comparison: 05/11/2018 Findings: The trachea is shifted to the right, not significant changed from prior examination. Heart size is normal. Large intrathoracic hernia is again noted. There is no new airspace opacity or pleural effusion. No pneumothorax. No acute osseous abnormality. Impression: Stable examination again demonstrating a large intrathoracic hiatal hernia. Reported By:
[2018-05-12] MEDS: DUONEB 0.5 MG/3 MG NEB SCH ×4 (09:39→21:08)
[2018-05-12] MEDS: CIPRO IV 400 MG PREMIX* 400 MG/200 ML IV.SOLN. IV SCH ×2 (09:56→21:42)
[2018-05-12] MEDS: ASPIRIN EC 81 MG PO SCH (09:58)
[2018-05-12] MEDS: ARICEPT TAB 10 MG PO SCH ×2 (09:58→21:41)
[2018-05-12] MEDS: PAXIL PO SCH (09:58)
[2018-05-12] MEDS: ALTACE CAP 10 MG PO SCH (09:58)
[2018-05-12] MEDS: SYNTHROID 75 mcg TAB PO SCH (09:58)
[2018-05-12] MEDS: NORVASC TAB 5 MG PO SCH (09:58)
[2018-05-12] MEDS: ULTRAM PO PRN (21:00)
[2018-05-12] MEDS: ZOCOR TAB 10 MG PO SCH (21:00)
[2018-05-12] MEDS: XANAX PO SCH (21:43)
[2018-05-13] MEDS: NS 1000 ML 1,000 ML IV SCH (00:42)
[2018-05-13 06:49] LABS: ALANINE AMINOTRANSFERASE 10 Units/L (12-78); ALBUMIN 1.9 g/dL (3.4-5.0); ALKALINE PHOSPHATASE 62 Units/L (46-116); ASPARTATE AMINO TRANSFERASE 24 Units/L (15-37); BLOOD UREA NITROGEN 20 mg/dL (7-18); CHLORIDE 104 mmol/L (98-107); COR CA(FOR HYPOALB) 9.7 mg/dL (8.5-10.1); CREATININE 0.86 mg/dL (0.55-1.02); SODIUM 138 mmol/L (136-145); TOTAL PROTEIN 5.3 g/dL (6.4-8.2); eGFR NON BLACK RACES > 60 (>60)
[2018-05-13 06:57] LABS: BASOPHILS # (AUTO) 0.1 X10^3/uL (0.0-0.1); BASOPHILS % (AUTO) 0.5 % (0.2-1.0); EOSINOPHILS # (AUTO) 0.1 x10^3/uL (0.0-0.2); EOSINOPHILS % (AUTO) 0.9 % (0.9-2.9); HEMATOCRIT 27.1 % (36.0-47.0); LYMPHOCYTES # (AUTO) 1.7 X10^3/uL (1.3-2.9); LYMPHOCYTES % (AUTO) 11.7 % (21.0-51.0); MEAN CORPUSCULAR HEMOGLOBIN 27.5 pg (27.0-34.0); MEAN CORPUSCULAR HGB CONC 33.3 g/dL (33.0-35.0); MEAN CORPUSCULAR VOLUME 82.6 fL (80.0-100.0); MEAN PLATELET VOLUME 7.6 fL (7.4-11.0); MONOCYTES # (AUTO) 1.1 x10^3/uL (0.3-0.8); MONOCYTES % (AUTO) 7.6 % (0.0-13.0); NEUTROPHILS # (AUTO) 11.2 x10^3/uL (2.2-4.8); NEUTROPHILS % (AUTO) 79.3 % (42.0-75.0); PLATELET COUNT 381 X10^3/uL (150.0-450.0); RED BLOOD COUNT 3.27 X10^6/uL (3.5-5.4); RED CELL DISTRIBUTION WIDTH 15.3 % (11.6-16.5); WHITE BLOOD COUNT 14.2 X10^3/uL (3.6-10.0)
--- NOTE | 2018-05-13 08:41 | RAD ---
HISTORY: Follow-up pneumonia Study: Chest AP portable Comparison: 05/12/2018 Findings: The heart is upper limits normal in size. No congestive heart failure is noted. The aorta is ectatic and calcified. The lungs are free of acute alveolar infiltrates. No pleural effusions are identified. There is a large hiatal hernia present. IMPRESSION: Lungs clear Large hiatal hernia Reported By:
--- NOTE | 2018-05-13 08:55 | PCM.PROG ---
Progress Note - Progress Note for Day of Date of Exam: 05/12/18 - Subjective Subjective: WAS ADMITTED WITH SYNCOPY, RIGHT SIDED HEAD NJURY, DIARRHEA, AND SHORTNESS OF BREATH. A BRAIN CT WAS OBTAINED IN [place] PRIOR TO TRANSFER AND WAS WITHOUT ACUTE FINDINGS. A CHEST XRAY OBTAINED THERE WAS CONCERNING FOR LEFT SIDED PNEUMONIA. ON HER PREVIOUS VISIT, A CA 125 LEVEL WAS DRAWN AND WAS ELEVATED AT 704. AN ABD/PELVIS CT ON HER LAST VISIT REVEALED: Abnormal soft tissue in the pelvis without clear identification of normal uterus or ovaries. This soft tissue is confluent with the sigmoid colon. Differential considerations include colonic or [employer] malignancy. There is extensive omental thickening and peritoneal nodularity as well as ascites consisting with metastatic peritoneal carcinomatosis. TODAY, SHE IS ALERT AND ORIENTED, LYING IN BED ON MORNING ROUNDS. SHE CONTINUES WITH SHORTNESS OF BREATH AND DIARRHEA. SHE ALSO REPORTS WEAKNESS. HER VITALS THIS MORNING ARE 98.8-92-20-92%-132/69. LABS WERE OBTAINED. ABNORMAL LAB VALUES INCLUDE THE FOLLOWING: WBC 14.7, RBC 3.32, HGB 9.1, HCT 27.2, CALCIUM 7.9, TOTAL BILI 0.10, TOTAL PROTEIN 5.1, ALBUMIN 1.9. CARDIAC ENZYMES AND EKGS WITHIN NORMAL LIMITS. STOOL POSITIVE FOR OCCULT BLOOD. BLOOD, SPUTUM, URINE, AND STOOL CULTURES PENDING. TODAYS CHEST XRAY REVEALED: Stable examination again demonstrating a large intrathoracic hiatal hernia. SHE IS CURRENTLY RECEIVING IV CIPRO, NORMAL SALINE AT [facility], AND HER HOME MEDICATIONS WERE RESUMED. WE PLAN TO FOLLOW UP WITH AM LABS AND CHEST XRAY AND CONTINUE TO MONITOR. - Past Medical Family Social History Past Med/Fam/Surg Hx: No changes since H&P Allergies: Allergies No Known Drug Allergies Allergy (Verified 03/18/18 11:41) - Review of Systems ROS: No change since H&P - Vital Signs and I&O's Vital Signs: Temperature 98.7 F Pulse Rate [Radial] 98 Pulse Rate 99 Respiratory Rate 22 Blood Pressure [Right Arm] 121/67 Blood Pressure [Left Arm] 144/76 Blood Pressure 135/68 O2 Sat by Pulse Oximetry 95 Intake and Output: Intake & Output 05/10/18 05/11/18 05/12/18 05/13/18 11:59 11:59 11:59 11:59 Intake Total 1270 / 1270 1469 / 1469 2019 Balance 1270 / 1270 1469 / 1469 2019 - Physical Exam Oriented: Normal Eyes: Normal Ear: Normal Nose: Normal Throat: Normal Respiratory: Diminished Cardiovascular: Normal : Normal Auscultation: Bowel Sounds: Increased Palpation: Normal Tenderness: RLQ, LLQ, Suprapubic, Mild Skin: Decreased Turgur Musculoskeletal: Normal Psychiatric: Anxiety Affect: Anxious Speech Pattern: Clear, Appropriate - Laboratory and Diagnostics Result Diagrams: 05/13/18 05:28 05/13/18 05:28 Labs: 05/10/18 21:10 Blood Blood Culture - Preliminary 05/10/18 21:10 Blood Blood Culture - Preliminary 05/11/18 08:54 Stool Stool Culture - Preliminary 05/11/18 08:54 Stool - Final 05/11/18 00:14 Urine,Clean Catch Urine Culture - Preliminary 05/10/18 22:12 Sputum - Expectorated Sputum Sputum Culture - Preliminary 05/10/18 22:12 Sputum - Expectorated Sputum - Final Laboratory WBC 14.2 X10^3/uL (3.6-10.0) H 05/13/18 05:28 RBC 3.27 X10^6/uL (3.5-5.4) L 05/13/18 05:28 Hgb 9.0 g/dL (12.0-16.0) L 05/13/18 05:28 Hct 27.1 % (36.0-47.0) L 05/13/18 05:28 MCV 82.6 fL (80.0-100.0) 05/13/18 05:28 MCH 27.5 pg (27.0-34.0) 05/13/18 05:28 MCHC 33.3 g/dL (33.0-35.0) 05/13/18 05:28 RDW 15.3 % (11.6-16.5) 05/13/18 05:28 Plt Count 381 X10^3/uL (150.0-450.0) 05/13/18 05:28 MPV 7.6 fL (7.4-11.0) 05/13/18 05:28 Neut % (Auto) 79.3 % (42.0-75.0) H 05/13/18 05:28 Lymph % (Auto) 11.7 % (21.0-51.0) L 05/13/18 05:28 [place] % (Auto) 7.6 % (0.0-13.0) 05/13/18 05:28 Eos % (Auto) 0.9 % (0.9-2.9) 05/13/18 05:28 Baso % (Auto) 0.5 % (0.2-1.0) 05/13/18 05:28 Neut # (Auto) 11.2 x10^3/uL (2.2-4.8) H 05/13/18 05:28 Lymph # (Auto) 1.7 X10^3/uL (1.3-2.9) 05/13/18 05:28 [place] # (Auto) 1.1 x10^3/uL (0.3-0.8) H 05/13/18 05:28 Eos # (Auto) 0.1 x10^3/uL (0.0-0.2) 05/13/18 05:28 Baso # (Auto) 0.1 X10^3/uL (0.0-0.1) 05/13/18 05:28 Absolute Nucleated RBC 0.0 /100WBC 05/13/18 05:28 Sodium 138 mmol/L (136-145) 05/13/18 05:28 Corrected Sodium TNP 05/13/18 05:28 Potassium 4.0 mmol/L (3.5-5.1) 05/13/18 05:28 Chloride 104 mmol/L (98-107) 05/13/18 05:28 Carbon Dioxide 25.0 mmol/L (21-32) 05/13/18 05:28 BUN 20 mg/dL (7-18) H 05/13/18 05:28 Creatinine 0.86 mg/dL (0.55-1.02) 05/13/18 05:28 Est GFR (MDRD) Af Amer > 60 (>60) 05/13/18 05:28 Est GFR (MDRD) Non-Af > 60 (>60) 05/13/18 05:28 Glucose 99 mg/dL (65-99) 05/13/18 05:28 Calcium 8.0 mg/dL (8.5-10.1) L 05/13/18 05:28 Corrected Calcium 9.7 mg/dL (8.5-10.1) 05/13/18 05:28 Magnesium 2.0 mg/dL (1.7-2.9) 05/11/18 05:39 Iron 8 ug/dL (50-175) L 05/11/18 08:30 Transferrin 129 mg/dL (202-364) L 05/11/18 08:30 Ferritin 191 ng/mL (8-252) 05/11/18 08:30 Total Bilirubin 0.20 mg/dL (0.2-1.0) 05/13/18 05:28 AST 24 Units/L (15-37) 05/13/18 05:28 ALT 10 Units/L (12-78) L 05/13/18 05:28 Alkaline Phosphatase 62 Units/L (46-116) 05/13/18 05:28 Creatine Kinase 32 Units/L (26-192) 05/12/18 02:27 CK-MB (CK-2) < 1.0 ng/mL (0-4.0) 05/12/18 02:27 CK/CKMB % Calc 3.1 % (<4) 05/12/18 02:27 Troponin I 0.03 ng/mL (0-1.5) 05/12/18 02:27 Total Protein 5.3 g/dL (6.4-8.2) L 05/13/18 05:28 Albumin 1.9 g/dL (3.4-5.0) L 05/13/18 05:28 Globulin 3.4 g/dL (2.5-4.5) 05/13/18 05:28 Albumin/Globulin Ratio 0.6 Ratio (1.1-2.1) L 05/13/18 05:28 Vitamin B12 333 pg/mL (193-986) 05/11/18 08:30 Folate 6.8 ng/mL (>8.6) L 05/11/18 08:30 Specimen Type Catherized urine 05/11/18 00:14 Urine Color Yellow (YELLOW) 05/11/18 00:14 Urine Appearance Hazy (CLEAR) 05/11/18 00:14 Urine pH 5.0 (5.0 - 8.0) 05/11/18 00:14 Ur Specific [place] 1.020 (1.000-1.030) 05/11/18 00:14 Urine Protein 2+ (NEGATIVE) 05/11/18 00:14 Urine Glucose (UA) Negative (NEGATIVE) 05/11/18 00:14 Urine Ketones Negative (NEGATIVE) 05/11/18 00:14 Urine Occult Blood 1+ (NEGATIVE) 05/11/18 00:14 Urine Nitrite Negative (NEGATIVE) 05/11/18 00:14 Urine Bilirubin Negative (NEGATIVE) 05/11/18 00:14 Urine Urobilinogen Normal (NORMAL) 05/11/18 00:14 Ur Leukocyte Esterase Negative (NEGATIVE) 05/11/18 00:14 Urine RBC 0-2 /HPF (NONE SEEN) 05/11/18 00:14 Urine WBC 3-5 /HPF (NONE SEEN) 05/11/18 00:14 Ur Squamous Epith Cells Negative /HPF (NEGATIVE) 05/11/18 00:14 Urine Bacteria Trace /HPF (NEGATIVE) 05/11/18 00:14 Ur Culture Indicated? No/not indicated 05/11/18 00:14 Stool Description 5cc drk brn, mucoid 05/11/18 08:54 Stl Occult Blood (IFOB) Positive (NEGATIVE) A 05/11/18 08:54 Stool for White Cells Positive (NEGATIVE) A 05/11/18 08:54 Stl C. diff Tox B Gene Negative (NEGATIVE) 05/11/18 08:54 Stl C. diff [id number] Negative (NEGATIVE) 05/11/18 08:54 - Plan (1) Bronchopneumonia Status: Acute Plan: CONTINUE IV CIPRO, RESPIRATORY TX, SUPPLEMENTAL OXYGEN (2) Syncope Status: Acute Plan: REVIEWED CT HEAD FROM [place] (3) UTI (urinary tract infection) Status: Acute Qualifiers: Urinary tract infection type: acute cystitis Hematuria presence: with hematuria Qualified Code(s): N30.01 - Acute cystitis with hematuria Plan: CIPRO, IV HYDRATION, CONTINUE TO MONITOR
[2018-05-13] MEDS: DUONEB 0.5 MG/3 MG NEB SCH ×2 (09:22→12:10)
[2018-05-13] MEDS: CIPRO IV 400 MG PREMIX* 400 MG/200 ML IV.SOLN. IV SCH (09:34)
[2018-05-13] MEDS: NORVASC TAB 5 MG PO SCH ×2 (09:36→09:37)
[2018-05-13] MEDS: ALTACE CAP 10 MG PO SCH (09:36)
[2018-05-13] MEDS: SYNTHROID 75 mcg TAB PO SCH (09:37)
[2018-05-13] MEDS: ASPIRIN EC 81 MG PO SCH (09:37)
[2018-05-13] MEDS: ARICEPT TAB 10 MG PO SCH (09:37)
[2018-05-13] MEDS: PAXIL PO SCH (09:37)
[2018-05-13] MEDS ORDERED: CYMBALTA PO SCH (11:00)
[2018-05-13 13:07] VITALS: BP 121/68
== END 2018-05-13 13:00 | disposition hospice, home (50) | DRG 194 ==
LOC: MED/SURG 19:32
PROVIDERS: ADMIT Internal Medicine; ATTEND Internal Medicine
DX: R26.89 Other abnormalities of gait and mobility; R55 Syncope and collapse; J18.0 Bronchopneumonia, unspecified organism; C56.9 Malignant neoplasm of unspecified ovary; R19.7 Diarrhea, unspecified; I10 Essential (primary) hypertension; R06.02 Shortness of breath; C79.9 Secondary malignant neoplasm of unspecified site; F41.8 Other specified anxiety disorders; Z66 Do not resuscitate; N30.01 Acute cystitis with hematuria; E03.8 Other specified hypothyroidism
CPT/HCPCS: 36415; 71010; 71045; 80053; 81001; 82270; 82550; 82553; 82607; 82728; 82746; 83540; 83630; 83735; 84132; 84466; 84484; 85025; 87040; 87045; 87070; 87086; 87205; 87427; 87449; 87493; 87899; 93005; 94640; 94760; 97162; 97166; 97535; A4222; C9113; J0456; J0696; J0744; J3475; J7030; J7050; J7620